=== PATIENT | female | born 1965 | race African-American/Black ===

== ENCOUNTER 2016-06-22 09:14 | Emergency (ER) | payer MEDICARE, MEDICAID ==
[~2016-06-22] VITALS: Ht 157.5 cm; Wt 60.0 kg
[~2016-06-22 09:14] MED LIST: HYDROCHLOROT12.5 MG OR; LISINOPRIL20 M1 OR; LORTAB5 PO; MELOXICAM15 MG OR; NORVASC; NORVASC OR; TRAMADOL HCL50 MG PO
[2016-06-22 09:38] LABS: HEMATOCRIT 35.4 % (37.0-47.0); HEMOGLOBIN 12.1 g/dl (12.0-16.0); IMMATURE GRANULOCYTES 0.4 % (0.0-1.0); MEAN CELL VOLUME 109.6 fL CALC (80.0-100.0); MEAN CORPUSCULAR HGB 37.5 pG CALC (26.0-32.0); MEAN CORPUSCULAR HGB CONC 34.2 g/L CALC (32.0-36.0); NEUT# 3.7 thou/uL (2.00-7.15); RED BLOOD COUNT 3.23 mill/uL (4.20-5.60); RED CELL DISTRI WIDTH 13.3 % (11.5-15.5)
[2016-06-22 09:48] LABS: ALBUMIN 4.5 g/dL (3.2-5.0); ALKALINE PHOSPHATASE 84 u/l (38-126); ANION GAP 17 (6-22 (CALC)); BILIRUBIN, TOTAL 0.5 mg/dL (0.0-1.4); BUN 16 mg/dL (7-17); BUN/CREATININE RATIO 18 (12-20 (CALC)); CALCIUM 9.8 mg/dL (8.4-10.2); CARBON DIOXIDE 25 mmol/l (22-30); CHLORIDE 102 mmol/l (95-108); CREATININE 0.9 mg/dL (0.5-1.0); GFR > 60 ML/MIN (>=60 (CALC)); GFR FOR AFR.AMER. > 60 ML/MIN (>=60 (CALC)); GLUCOSE 94 mg/dL (65-105); POTASSIUM 3.7 mmol/l (3.5-5.1); SGOT/AST 40 u/l (14-36); SGPT/ALT 26 u/l (9-52); SODIUM 140 mmol/l (137-146); TOTAL PROTEIN 8.1 g/dL (6.3-8.2)
[2016-06-22 09:59] LABS: MYOGLOBIN 12 ng/mL (0 - 62)
[2016-06-22] MEDS ORDERED: AMLODIPINE5 MG PO (10:21)
[2016-06-22] MEDS ORDERED: TRAMADOL HCL50 MG PO (10:22)
[2016-06-22] MEDS ORDERED: PAROXETINE10 MG PO (10:22)
[2016-06-22] MEDS ORDERED: ONDANSETRON HCL4 MG PO (10:23)
[2016-06-22] MEDS ORDERED: OXYCODONE HCL5 MG PO (10:23)
[2016-06-22] MEDS ORDERED: TERBINAFINE250 MG PO (10:24)
[2016-06-22 11:21] VITALS: BP 123/80
== END 2016-06-22 11:21 | disposition home or self-care (01) ==
LOC: ED 09:14
PROVIDERS: Emergency Medicine
DX: R55 Syncope and collapse (principal); R94.31 Abnormal electrocardiogram [ECG] [EKG]; Y92.89 Other specified places as the place of occurrence of the external cause

== ENCOUNTER 2017-03-27 14:53 | Emergency (ER) | payer MEDICARE, MEDICAID ==
[~2017-03-27] VITALS: Ht 157.5 cm; Wt 58.2 kg
[~2017-03-27 14:53] MED LIST changes: +AMLODIPINE5 MG PO; +ONDANSETRON HCL4 MG PO; +OXYCODONE HCL5 MG PO; +PAROXETINE10 MG PO; +TERBINAFINE250 MG PO
[2017-03-27] MEDS ORDERED: ULTRAM50 M1 PO (15:50)
[2017-03-27] MEDS ORDERED: OXYCODONE10 MG PO (15:51)
[2017-03-27] MEDS ORDERED: TERBINAFINE HC250 MG PO (15:52)
[2017-03-27] MEDS ORDERED: CARVEDILOL3.125 MG PO ×2 (15:52→15:58)
[2017-03-27] MEDS ORDERED: PREDNISONE50 MG PO (16:14)
[2017-03-27] MEDS ORDERED: LORTAB 5/3255 MG PO (16:14)
[2017-03-27 16:21] VITALS: BP 165/99
== END 2017-03-27 16:32 | disposition home or self-care (01) ==
LOC: ED 14:53
DX: M19.071 Primary osteoarthritis, right ankle and foot (principal); I10 Essential (primary) hypertension; F17.210 Nicotine dependence, cigarettes, uncomplicated

== ENCOUNTER 2017-06-13 08:35 | Day surgery (SDC) | payer MEDICARE, MEDICAID ==
[~2017-06-13] VITALS: Ht 157.5 cm; Wt 59.0 kg
[~2017-06-13 08:35] MED LIST changes: +B121000 MCG PO; +CARVEDILOL3.125 MG PO; +D3400 UNIT PO; +ESTRACE0.5 MG PO; +LORTAB 5/3255 MG PO; +MAGNESIUM400 MG PO; +OXYCODONE10 MG PO; +PREDNISONE50 MG PO; +TERBINAFINE HC250 MG PO; +ULTRAM50 M1 PO
[2017-06-13 09:37] LABS: URINE BILIRUBIN - DIPSTICK NEGATIVE (NEGATIVE); URINE BLOOD DIPSTICK TRACE-INTACT (NEGATIVE); URINE COLOR YELLOW; URINE GLUCOSE - DIPSTICK NEGATIVE (NEGATIVE); URINE KETONE NEGATIVE (NEGATIVE); URINE LEUK ESTERASE NEGATIVE (Negative); URINE NITRITE - DIPSTICK POSITIVE (Negative); URINE PH 5.5 (4.5-8.0); URINE PROTEIN - DIPSTICK NEGATIVE (NEG-TRACE); URINE SPECIFIC GRAVITY 1.025; URINE UROBILINOGEN - DIPSTICK 0.2 E.U./dL (0.2)
[2017-06-13 09:40] LABS: URINE CLARITY HAZY
[2017-06-13 09:41] LABS: HEMATOCRIT 36.3 % (37.0-47.0); HEMOGLOBIN 12.1 g/dl (12.0-16.0); IMMATURE GRANULOCYTES 0.4 % (0.0-1.0); MEAN CELL VOLUME 103.1 fL CALC (80.0-100.0); MEAN CORPUSCULAR HGB 34.4 pG CALC (26.0-32.0); MEAN CORPUSCULAR HGB CONC 33.3 g/L CALC (32.0-36.0); NEUT# 6.01 thou/uL (2.00-7.15); RED BLOOD COUNT 3.52 mill/uL (4.20-5.60); RED CELL DISTRI WIDTH 13.6 % (11.5-15.5)
[2017-06-13 09:42] LABS: URINE BACTERIA MODERATE hpf; URINE EPITHELIAL CELLS FEW EPI/hpf (0-FEW)
[2017-06-13 10:09] LABS: ALBUMIN 4.4 g/dL (3.2-5.0); ALKALINE PHOSPHATASE 85 u/l (38-126); ANION GAP 17 (6-22 (CALC)); BILIRUBIN, TOTAL 0.6 mg/dL (0.0-1.4); BUN 20 mg/dL (7-17); BUN/CREATININE RATIO 28 (12-20 (CALC)); CARBON DIOXIDE 26 mmol/l (22-30); CHLORIDE 102 mmol/l (95-108); CREATININE 0.7 mg/dL (0.5-1.0); GFR > 60 ML/MIN (>=60 (CALC)); GFR FOR AFR.AMER. > 60 ML/MIN (>=60 (CALC)); POTASSIUM 3.6 mmol/l (3.5-5.1); SGOT/AST 34 u/l (14-36); SGPT/ALT 35 u/l (9-52); SODIUM 142 mmol/l (137-146); TOTAL PROTEIN 7.3 g/dL (6.3-8.2)
[2017-06-13 10:14] LABS: INTERNATIONAL NORMALIZED RATIO 0.9 RATIO (0.7-1.3); PROTHROMBIN TIME 10.3 SECONDS (9.0-12.5)
[2017-06-13] MEDS ORDERED: PERCOCET 10/31 COMBO PO (12:20)
[2017-06-13] MEDS ORDERED: ECOTRIN M/S500 MG PO (12:20)
[2017-06-13] MEDS ORDERED: KEFLEX500 M1 PO (12:20)
[2017-06-13 12:32] VITALS: BP 129/82
== END 2017-06-13 14:20 | disposition home or self-care (01) ==
LOC: ORM 08:35
PROVIDERS: ATTEND Podiatrist Foot & Ankle Surgery
PROC: 0MQQ4ZZ Repair Right Ankle Bursa and Ligament, Percutaneous Endoscopic Approach (ICD-10-PCS; principal; 2017-06-13)
PROC: 0SBF4ZZ Excision of Right Ankle Joint, Percutaneous Endoscopic Approach (ICD-10-PCS; 2017-06-13)
DX: M25.371 Other instability, right ankle (principal); M65.871 Other synovitis and tenosynovitis, right ankle and foot; M24.171 Other articular cartilage disorders, right ankle; M24.671 Ankylosis, right ankle

== ENCOUNTER → 2018-04-06 | Outpatient (REF) | payer MEDICARE, MEDICAID ==
[~2018-04-06] MED LIST changes: +ECOTRIN M/S500 MG PO; +KEFLEX500 M1 PO; +PERCOCET 10/31 COMBO PO
[2018-04-06 15:23] LABS: HEMATOCRIT 37.9 % (37.0-47.0); IMMATURE GRANULOCYTES 0.3 % (0.0-5.0); MEAN CELL VOLUME 100.8 fL CALC (80.0-100.0); MEAN CORPUSCULAR HGB 34.6 pG CALC (26.0-32.0); MEAN CORPUSCULAR HGB CONC 34.3 g/L CALC (32.0-36.0); NEUT# 4.47 thou/uL (2.00-7.15); RED BLOOD COUNT 3.76 mill/uL (4.20-5.60); RED CELL DISTRI WIDTH 13.5 % (11.5-15.5)
[2018-04-06 15:57] LABS: ALBUMIN 4.9 g/dL (3.2-5.0); ALKALINE PHOSPHATASE 63 u/l (38-126); ANION GAP 19 (6-22 (CALC)); BILIRUBIN, TOTAL 1.1 mg/dL (0.0-1.4); BUN 13 mg/dL (7-17); BUN/CREATININE RATIO 15 (12-20 (CALC)); CARBON DIOXIDE 23 mmol/l (22-30); CHLORIDE 100 mmol/l (95-108); CREATININE 0.9 mg/dL (0.5-1.0); GFR > 60 ML/MIN (>=60 (CALC)); GFR FOR AFR.AMER. > 60 ML/MIN (>=60 (CALC)); POTASSIUM 3.8 mmol/l (3.5-5.1); SGOT/AST 39 u/l (14-36); SODIUM 138 mmol/l (137-146); TOTAL CHOLESTEROL 182 mg/dl (0-199); TOTAL PROTEIN 7.8 g/dL (6.3-8.2); TOTAL TRIGLYCERIDES 96 mg/dl (30-149); VLDL CHOLESTROL 19 mg/dl (2-49 (CALC))
[2018-04-06 16:07] LABS: CALCULATED LDLCHOLESTEROL 47 mg/dL (62-129 (CALC)); CHOLESTEROL HDL RATIO 1.6 (<4.4 (CALC)); HDL CHOLESTEROL 116 mg/dL (>=40)
== END | disposition home or self-care (01) ==
LOC: LAB 15:08
PROVIDERS: ATTEND Internal Medicine
DX: I10 Essential (primary) hypertension (principal); E78.49 Other hyperlipidemia; E03.9 Hypothyroidism, unspecified; E11.65 Type 2 diabetes mellitus with hyperglycemia

== ENCOUNTER 2019-08-18 18:11 | Emergency (ER) | payer MEDICARE, MEDICAID ==
[~2019-08-18] VITALS: Ht 157.5 cm; Wt 59.0 kg
[2019-08-18 18:23] VITALS: BP 126/93
== END 2019-08-18 20:15 | disposition left against medical advice (07) ==
LOC: ED 18:11
PROC: 2W2SX4Z Dressing of Right Foot using Bandage (ICD-10-PCS; principal; 2019-08-18)
DX: T25.291A Burn of second degree of multiple sites of right ankle and foot, initial encounter (principal); T31.0 Burns involving less than 10% of body surface; I10 Essential (primary) hypertension; F17.200 Nicotine dependence, unspecified, uncomplicated; X12.XXXA Contact with other hot fluids, initial encounter; Y93.E1 Activity, personal bathing and showering; Y92.009 Unspecified place in unspecified non-institutional (private) residence as the place of occurrence of the external cause; Z91.19 Patient's noncompliance with other medical treatment and regimen

== ENCOUNTER 2020-01-06 09:05 | Inpatient (IN) | payer MEDICARE, MEDICAID ==
[~2020-01-06] VITALS: Ht 157.5 cm; Wt 60.0 kg
--- NOTE | 2020-01-06 09:05 | NUR ---
PATIENT TO ROOM VIA EMS STRETCHER.
[2020-01-06 09:47] LABS: HEMATOCRIT 37.1 % (37.0-47.0); HEMOGLOBIN 12.1 g/dl (12.0-16.0); IMMATURE GRANULOCYTES 0.3 % (0.0-5.0); MEAN CORPUSCULAR HGB 31.3 pG CALC (26.0-32.0); MEAN CORPUSCULAR HGB CONC 32.6 g/dL CAL (32.0-36.0); NEUT# 11.89 thou/uL (2.00-7.15); RED BLOOD COUNT 3.87 mill/uL (4.20-5.60); RED CELL DISTRI WIDTH 16.5 % (11.5-15.5)
[2020-01-06 09:48] LABS: MEAN CELL VOLUME 95.9 fL CALC (80.0-100.0)
[2020-01-06 10:27] LABS: ALBUMIN 4.3 g/dL (3.2-5.0); POTASSIUM 3.5 mmol/l (3.5-5.1); TOTAL PROTEIN 7.3 g/dL (6.3-8.2)
--- NOTE | 2020-01-06 10:30 | NUR ---
IV MEDS INFUSING WITHOUT DIFFICULTY. STABLE ON MONITOR. BED IN LOW POSITION.
[2020-01-06 10:38] LABS: BILIRUBIN, TOTAL 0.9 mg/dL (0.0-1.4); CREATININE 2.5 mg/dL (0.5-1.0)
[2020-01-06 10:47] LABS: URINE BLOOD DIPSTICK SMALL (NEGATIVE); URINE GLUCOSE - DIPSTICK NEGATIVE (NEGATIVE); URINE KETONE TRACE mg/dL (NEGATIVE); URINE LEUK ESTERASE NEGATIVE (NEGATIVE); URINE PROTEIN - DIPSTICK 30 mg/dL (NEG-TRACE); URINE SPECIFIC GRAVITY >=1.030; URINE UROBILINOGEN - DIPSTICK 0.2 E.U./dL (0.2)
[2020-01-06 10:49] LABS: URINE BILIRUBIN - DIPSTICK LARGE (NEGATIVE); URINE COLOR DK. YELLOW; URINE EPITHELIAL CELLS MANY EPI/hpf (0-FEW); URINE NITRITE - DIPSTICK POSITIVE (Negative)
[2020-01-06 10:50] LABS: URINE BACTERIA MODERATE hpf
[2020-01-06 10:56] LABS: TSH, 3RD GENERATION 1.54 uIU/mL (0.47 - 4.68)
--- NOTE | 2020-01-06 11:30 | NUR ---
PT RESTING ON STRETCHER. RESP EVEN AND UNLABORED. IVF CONTINUING TO INFUSE TO RIGHT EJ SITE WITHOUT DIFFICULYT. JORDAN BAG WITH APPX 200 CC OF DARK COLORED URINE. DIME SIZE BED SORE NOTED TO SACCRUM. PT ABLE TO RECOGNIZE SELF, YEAR AND PLACE.
--- NOTE | 2020-01-06 11:55 | NUR ---
REPORT CALLED TO HEIDI HIDALGO ON [facility].
[2020-01-06 17:12] VITALS: BP 132/93
--- NOTE | 2020-01-06 18:32 | NUR ---
PT WAS FED BY LOLI OVALLE, BUT ATE VERY LITTLE. PT REMAINS LETHARGIC IN THE BED, APPEARS TO BE SLEEPING.
[2020-01-06 18:54] VITALS: BP 103/77
--- NOTE | 2020-01-06 19:36 | NUR ---
PT APPEARS TO BE SLEEING IN LOW FOWLERS POSITION IN BED WITH LIGHTS AND TV OFF. NO S/O DISTRESS NOTED AT THIS TIME.
--- NOTE | 2020-01-06 21:55 | NUR ---
PT APEARS TO BE SLEEPING I ENTERED THE ROOM. ASSESSMENT COMPLETED AT THIS TIME. PT LOC TO SELF, BUT UNABLE TO TELL ME WHERE SHE IS. PT APPEARS VERY GROGGY. SHE DID ASK FOR FOOD/PROVIDED SNACK AT THIS TIME, BUT PT APPEARS TO BE TOO SLEEPY TO EAT AT THIS TIME. WILL CONTINUE TO MONITOR.
[2020-01-06 23:57] VITALS: BP 125/84
--- NOTE | 2020-01-07 01:12 | NUR ---
PT SLEEPING, NO S/O DISTRESS NOTED AT THIS TIME. UNOPENED SNACK IS STILL AT BEDSIDE UNOPENED. CALL LIGHT AT SIDE.
[2020-01-07 04:00] VITALS: BP 109/78
[2020-01-07 05:26] LABS: IMMATURE GRANULOCYTES 0.6 % (0.0-5.0); MEAN CELL VOLUME 95.8 fL CALC (80.0-100.0); MEAN CORPUSCULAR HGB 31.4 pG CALC (26.0-32.0); MEAN CORPUSCULAR HGB CONC 32.8 g/dL CAL (32.0-36.0); NEUT# 5.87 thou/uL (2.00-7.15); RED BLOOD COUNT 3.12 mill/uL (4.20-5.60); RED CELL DISTRI WIDTH 16.9 % (11.5-15.5)
[2020-01-07 05:30] LABS: HEMATOCRIT 29.9 % (37.0-47.0); HEMOGLOBIN 9.8 g/dl (12.0-16.0)
[2020-01-07 05:39] LABS: BILIRUBIN, TOTAL 0.6 mg/dL (0.0-1.4); CREATININE 1.7 mg/dL (0.5-1.0); MAGNESIUM 1.8 mg/dL (1.6-2.3); POTASSIUM 3.3 mmol/l (3.5-5.1)
[2020-01-07 05:42] LABS: TOTAL PROTEIN 5.3 g/dL (6.3-8.2)
--- NOTE | 2020-01-07 05:42 | NUR ---
PT SLEEPING ON LEFT SIDE. PT AWOKE TO MY VOICE. I WENT OVER MEDICATION WITH PT, ENCOURAGED HER TO CHANGE SIDES DUE TO BEING ON THAT SIDE MOST OF THE NIGHT, SHE STATED "YOU WILL HAVE TO HELP ME." I PROCEEDED TO ASSIST PT REPOSITION IN THE BED, PT APPEARS WEAK AND DID NOT GIVE MUCH EFFORT TO REPOSITIONING. JORDAN CATH DRAINING CLEAR YELLOW URINE TO GRAVITY, STAT-LOCK TO RUE. NEURO'S APPEAR INTACT AT THIS TIME, BUT PT LOC TO SELF AND HOSPITAL ONLY, COULD NOT NAME THE HOSPITAL. PT STATES, "I NEED FOOD" I INFORMED HER THAT SHE HAS FOOD ON HER BST AND ATTEMPTED TO ASSIST PT TO EAT, BUT SHE WOULD NOT EAT. PT DOES NOT APPEAR IN DISTRESS, APPEARS GROGGY AND WEAK. CALL LIGHT W/IN REACH AND PT REORIENTED TO ITS USE.
[2020-01-07 09:00] VITALS: BP 101/78
--- NOTE | 2020-01-07 09:00 | NUR ---
ASSESSMENT IS COMPLETED: IV SITE IS FREE FROM REDNESS OR EDMEA. HR IS REG,PULSES ARE STRONG X4,A BD IS SOFT WITH ACTIVE BS. BREATH SOUNDS ARE CLEAR BILATERALLY, JORDAN DRAINING CHRISS COLORED. TELE MONITOR #[id number] CONTINUE TO OSBERVE AND MONITOR.
[2020-01-07] MEDS ORDERED: OXYCODONE10 M1 PO (10:44)
[2020-01-07] MEDS ORDERED: MEGESTROL625 MG/5 M PO (10:47)
[2020-01-07] MEDS ORDERED: ZESTRIL5 M1 PO (10:48)
[2020-01-07] MEDS ORDERED: TERBINAFINE HC250 MG PO (10:49)
[2020-01-07] MEDS ORDERED: DRONABINOL10 MG PO (10:58)
[2020-01-07] MEDS ORDERED: VITAMIN D35000 UNIT PO (11:07)
[2020-01-07 11:15] VITALS: BP 114/81
[2020-01-07] MEDS ORDERED: ALENDRONATE SOD70 MG PO (11:19)
[2020-01-07] MEDS ORDERED: ONDANSETRON ODT8 MG TL (11:20)
--- NOTE | 2020-01-07 12:40 | NUR ---
PT IS RELAXING IN BED WITH NO DISTRESS NOTED. PT NOT WANTING TO EAT VERY MUCH OR DRINK. HAS TO BE ENCOURAGED.
[2020-01-07 15:25] VITALS: BP 130/87
--- NOTE | 2020-01-07 16:40 | NUR ---
PT IS RELAXING IN BED WITH MO DISTRESS NOTED. IV SITE IS FREE FROM REDNESS OR EDEA
[2020-01-07 19:00] VITALS: BP 123/95
--- NOTE | 2020-01-07 20:43 | NUR ---
PT SLEEPING, AWOKE TO MY VOICE, PT IS SLUMPED OVER ON HER LEFT SIDE AND ASKED TO BE PULLED OVER. I ENCOURAGED HER TO HELP MOVE HERSELF WITH MY ASSISTANCE SHOWING HER THE RAIL ON THE BED, VERY WEAK, BUT SHE WAS ABLE TO REPOSITION IN THE BED WITH DIRECT INSTRUCTION. EYES ARE OPEN AND SPEECH IS CLEAR. PT ASKING ME WHAT I COOKED, I REORIENTED HER THAT SHE IS IN THE HOSPITAL AND OFFERED COKE OR JUICE WITH CRACKERS.
--- NOTE | 2020-01-07 21:11 | NUR ---
PT'S BROTHER "JLUIS" CALLED WITH [employer] TO ASK FOR UPDATE ON THE PT. DISCUSSED STATUS AND POC AT THIS TIME WITH HIM. WE PLACED A PHONE IN WITH PT, BUT HE STATED HE WOULD NOT "BOTHER HER." I REVIEWED VISITATION RESTRICTIONS WITH HIM AND OFFERED TO TRANSFER HIS CALL INTO HER/DENIED. HE ASKED FOR ME TO CALL HIM AT THE NUMBER USED AT THIS TIME IF ANYTHING "HAPPENS TO HER." ENCOURAGED HIM TO CALL ANYTIME IF HE HAS ANY QUESTIONS.
--- NOTE | 2020-01-07 23:45 | NUR ---
PT MEDICATED ORDERS PROVIDE AND CLEANED OF INCONTINENT LARGE AMOUNT OF SOFT STOOL AT THIS TIME. PT TOLERATED WELL.
[2020-01-08] VITALS: BP 137/96
[2020-01-08 04:00] VITALS: BP 134/96
--- NOTE | 2020-01-08 04:19 | NUR ---
LAB IN W/PT. PT MEDICATED ORDERS PROVIDE FOR MORNING MEDICATIONS AND IVF REPLENISHED AT THIS TIME. I ASKED PT HOW SHE WAS THIS MORNING SHE REPORTED, "AWE IT WILL WORK OUT." DENIES PAIN/N/V OR ANY OTHER DISTRESSES. LIGHTS TURNED LOW AND TV IS ON.
[2020-01-08 05:31] LABS: HEMATOCRIT 28.3 % (37.0-47.0); MEAN CELL VOLUME 98.3 fL CALC (80.0-100.0); MEAN CORPUSCULAR HGB 31.3 pG CALC (26.0-32.0); MEAN CORPUSCULAR HGB CONC 31.8 g/dL CAL (32.0-36.0); RED BLOOD COUNT 2.88 mill/uL (4.20-5.60)
[2020-01-08 05:48] LABS: CREATININE 1.2 mg/dL (0.5-1.0); MAGNESIUM 1.5 mg/dL (1.6-2.3)
[2020-01-08 05:50] LABS: POTASSIUM 3.2 mmol/l (3.5-5.1)
[2020-01-08 07:28] VITALS: BP 132/99
--- NOTE | 2020-01-08 08:19 | NUR ---
PT AWAKE, ALERT, ORIENTED TO SELF ONLY. LUNGS CLEAR, RA. ABDOMEN SOFT, NONTENDER, BM TODAY. IVF CONTINUES TO RIJ SITE. PT IMPROVED, HOWEVER REMAINS IN NEED OF FEEDING ASSISTANCE AND SHE IS CONFUSED.
[2020-01-08 10:30] VITALS: BP 128/90
--- NOTE | 2020-01-08 11:09 | NUR ---
PT ABLE TO USE BEDPAN THIS MORNING, DID STATE HER NEED APPROPRIATELY.
--- NOTE | 2020-01-08 12:53 | NUR ---
PT FED LUNCH, TOLERATED WELL. PT CONTINUES CONFUSED, ALTHOUGH AT TIMES SHE APPEARS ORIENTED.
[2020-01-08 14:55] VITALS: BP 124/89
--- NOTE | 2020-01-08 18:39 | NUR ---
PT HAS BEEN ABLE TO SPEAK WITH HER BROTHER BY PHONE TODAY. SHE IS SLOWLY SHOWING IMPROVEMENT IN MENTATION.
[2020-01-08 19:00] VITALS: BP 136/97
--- NOTE | 2020-01-08 21:00 | NUR ---
Pt resting in bed with HOB at 45*, still confused A&O to self. Nurse offered water and a snack, pt accepted and nursed helped her take a drink and gave her half of nutri grain bar.
[2020-01-09] VITALS (7 sets, daily range): BP systolic 129–148; BP diastolic 80–103
--- NOTE | 2020-01-09 | NUR ---
Pt resting in bed with eyes open, however when asked if she knows where she is. She does not know and when informed she is in the hospital, she denies it. She does state she feels better than she was feeling. Pt is pleasently confused.
--- NOTE | 2020-01-09 04:46 | NUR ---
CERTIFIED MEDICAL ASSISTANT noified nurse regarding elevated BP 147/103, waited 30 mins and rechecked currently 141/101. Contacted Dr. Mckeon, left a VM and also text 15 mins later. Awaiting response, however will continue to monitor as pt is asymptomatic and is resting comfortably.
[2020-01-09 05:26] LABS: HEMATOCRIT 29.3 % (37.0-47.0); HEMOGLOBIN 9.3 g/dl (12.0-16.0); MEAN CORPUSCULAR HGB 31.1 pG CALC (26.0-32.0); MEAN CORPUSCULAR HGB CONC 31.7 g/dL CAL (32.0-36.0); RED BLOOD COUNT 2.99 mill/uL (4.20-5.60); RED CELL DISTRI WIDTH 17.1 % (11.5-15.5)
[2020-01-09 05:36] LABS: ANION GAP 10 (6-22 (CALC)); BUN 37 mg/dL (7-17); BUN/CREATININE RATIO 40 (12-20 (CALC)); CARBON DIOXIDE 22 mmol/l (22-30); CHLORIDE 120 mmol/l (95-108); CREATININE 0.9 mg/dL (0.5-1.0); GFR > 60 ML/MIN (>=60 (CALC)); GFR FOR AFR.AMER. > 60 ML/MIN (>=60 (CALC)); MAGNESIUM 1.8 mg/dL (1.6-2.3); POTASSIUM 3.7 mmol/l (3.5-5.1); SODIUM 148 mmol/l (137-146)
--- NOTE | 2020-01-09 06:31 | NUR ---
MD put in new orders for the AM/daily regarding pt elevated BP. Will relay information to next nurse.
--- NOTE | 2020-01-09 07:50 | NUR ---
REPORT RECEIVED FROM HEIDI TIJERINA. PT RESTING IN BED SUPINE WITH EYES CLOSED; AWAKENS TO VERBAL STIMULI. PT LOOKS AROUND THE ROOM WITH EYES HALF OPEN AND DOES NOT MAKE EYE CONTACT. ABLE TO STATE NAME AND , BUT OTHERWISE DISORIENTED. FOLLOWS COMMANDS TO OPEN MOUTH AND ONLY OPENS EYES HALF WAY EVEN AFTER ENCOURAGEMENT TO OPEN THEM WIDE; ASSISTED WITH EYE OPENING; PUPILS ARE EVEN 2MM WITH SLUGGISH REACTION TO LIGHT. LUNG SOUNDS ARE DIMINISHED; NO EDEMA; KARYN HOSE INTACT TO BLE. ASSISTED WITH EATING BREAKFAST. SAFETY MEASURES IN PLACE INCLUDING ROOM CLOSE TO NURSES DESK AND DOOR OPEN FOR BETTER VIEW OF PT. NEEDS ARE ANTICIPATED BY STAFF.
--- NOTE | 2020-01-09 08:32 | NUR ---
TYLENOL GIVEN WITH AM MED FOR LOWER BACK PAIN; PT TOOK MEDICATIONS WHOLE WITH WATER. HYGIENE PROVIDED BY STAFF INCLUDING JORDAN CARE.
--- NOTE | 2020-01-09 08:50 | NUR ---
ASSISTED ONTO BEDPAN AFTER PT REPORTS HAVING TO HAVE A BOWEL MOVEMENT; NO BOWEL MOVEMENT AFTER 20 MINUTES ON BEDPAN.
--- NOTE | 2020-01-09 09:11 | NUR ---
DR. MAGALLON AND RASHARD FIGUEROA AT BEDSIDE FOR EVAL.
--- NOTE | 2020-01-09 11:06 | NUR ---
PHYSICAL THERAPY AT BEDSIDE FOR EVAL. NOTED NYSTAGMUS; PT DIZZY AND NAUSEOUS WITH REPOSITIONING. MRI DELAYED CURRENTLY DUE TO UNKNOWN RECENT MEDICAL/SURGICAL HISTORY.
--- NOTE | 2020-01-09 14:10 | NUR ---
NEW 20G IV SITE PLACED TO LAC FOR CTA OF BRAIN; VERBAL CONSENT OBTAINED FROM NEXT OF KIN, BROTHER MARITZA. PT REMAINS DISORIENTED; PLEASANTLY CONFUSED.
--- NOTE | 2020-01-09 14:40 | NUR ---
TRANSPORTED TO CT VIA STRETCHER WITH [facility] STAFF IN STABLE CONDITION FOR CTA OF BRAIN. CTA COMPLETED AND PT TRASNFERRED BACK INTO BED WITH 3 PERSON ASSIST. PT TOLERATED TEST WELL.
--- NOTE | 2020-01-09 17:52 | NUR ---
PT CONTINUES TO REST IN BED; AWAKE AND LOOKING AROUND THE ROOM; MORE ALERT, BUT REMAINS CONFUSED. 2 IV SITES APPEAR HEALTHY. JORDAN CONTINUES TO DRAIN CLEAR YELLOW URINE IN ADEQUATE AMOUNTS. SAFETY MEASURES IN PLACE.
--- NOTE | 2020-01-09 20:00 | NUR ---
Pt still very confused but pleasent. She is still denying that she is at the hospital. Pt has a gaze as if she is not looking at you or can not see efficiently, however nurse help fingers up and she answered correctly. Pt was complaining of R foot pain, stating she had broke it not long ago. Administered tylenol and is resting in semi-fowlers position.
[2020-01-10] VITALS: BP 140/97
--- NOTE | 2020-01-10 | NUR ---
Pt resting comfortably in semi-arboleda position. Repositioned to the middle of the bed as pt has tendecncy to lean to the left.
--- NOTE | 2020-01-10 03:48 | NUR ---
Pt was found sitting on side of bed after nurse and CHARGE COORDINATOR heard something drop in her room. Pt was partially covered in feces and bed in disarray. Nurse and CHARGE COORDINATOR cleaned pt and bed, change linen and her gown, and placed her proper position in bed. Pt still very confused and weak. Pt watching tv and laying quietly.
[2020-01-10 04:00] VITALS: BP 147/101
[2020-01-10 06:08] LABS: HEMATOCRIT 34.7 % (37.0-47.0); HEMOGLOBIN 10.8 g/dl (12.0-16.0); IMMATURE GRANULOCYTES 1.5 % (0.0-5.0); MEAN CELL VOLUME 99.1 fL CALC (80.0-100.0); MEAN CORPUSCULAR HGB 30.9 pG CALC (26.0-32.0); MEAN CORPUSCULAR HGB CONC 31.1 g/dL CAL (32.0-36.0); NEUT# 5.64 thou/uL (2.00-7.15); RED BLOOD COUNT 3.5 mill/uL (4.20-5.60); RED CELL DISTRI WIDTH 17.2 % (11.5-15.5)
[2020-01-10 06:24] LABS: ANION GAP 10 (6-22 (CALC)); BILIRUBIN, TOTAL 0.6 mg/dL (0.0-1.4); BUN 24 mg/dL (7-17); BUN/CREATININE RATIO 31 (12-20 (CALC)); CARBON DIOXIDE 21 mmol/l (22-30); CHLORIDE 118 mmol/l (95-108); CREATININE 0.8 mg/dL (0.5-1.0); GFR > 60 ML/MIN (>=60 (CALC)); GFR FOR AFR.AMER. > 60 ML/MIN (>=60 (CALC)); POTASSIUM 3.6 mmol/l (3.5-5.1); SGOT/AST 82 u/l (14-36); SODIUM 146 mmol/l (137-146); TOTAL PROTEIN 5.5 g/dL (6.3-8.2)
[2020-01-10 06:28] LABS: ALKALINE PHOSPHATASE 104 u/l (38-126)
[2020-01-10 07:24] VITALS: BP 150/106
--- NOTE | 2020-01-10 07:24 | NUR ---
PT LAYING IN BED. AROUSABLE TO SPEECH. UNABLE TO STATE NAME AT THIS TIME. JORDAN CATHETER IN PLACE DRAINING VIA GRAVITY WITH CLEAR YELLOW URINE NOTED. PT UNABLE TO MAINTAIN EYE CONTACT AT THIS TIME. INCONTINENT OF BOWEL, WITH BOWEL MOVEMENT THIS MORNING. PERICARE PROVIDED ALONG WITH JORDAN CATHETER CARE. ASSESSMENT COMPLETED. DISCUSSED POC, REINFORCEMENT NEEDED. PT PLACED ON NEW BED TO PLACE BED ALARM. CALL LIGHT WITHIN REACH. CONTINUE TO MONITOR.
--- NOTE | 2020-01-10 08:56 | NUR ---
DR MAGALLON AND Bekah MCKNIGHT APRN AT BEDSIDE DISCUSSING POC
[2020-01-10] MEDS ORDERED: CIPROFLOXACN500 MG PO (10:41)
[2020-01-10] MEDS ORDERED: OXYCODONE10 M1 PO (10:41)
[2020-01-10 11:08] VITALS: BP 138/98
--- NOTE | 2020-01-10 11:47 | NUR ---
PT SITTING IN BED. MORE ALERT AND VERBAL. PT A&O TO SELF, REORIENTED TO PLACE AND TIME REINFORCEMENT NEEDED. BED ALARM IN PLACE. CALL LIGHT WITHIN REACH. CONTINUE TO MONITOR.
[2020-01-10 15:05] VITALS: BP 103/75; BP 150/78
--- NOTE | 2020-01-10 17:54 | NUR ---
REPORT GIVEN TO R NURSE. PRESCRIPTIONS SENT WITH PT. IVS INTACT UPON REMOVAL. Discharge instructions given. Patient verbalizes understanding of same. Discharged in stable condition via Wheelchair to [facility] rehab with staff. All belongings sent with pt.
== END 2020-01-10 17:37 | DRG 872 ==
LOC: ED 09:05 → ED-I 10:55 → ED 11:10 → MS2 11:11
PROVIDERS: Family Medicine; Nurse Practitioner; ADMIT Internal Medicine; ATTEND Internal Medicine
DX: A41.9 Sepsis, unspecified organism (principal); N39.0 Urinary tract infection, site not specified; N17.9 Acute kidney failure, unspecified; E87.2 Acidosis; R41.0 Disorientation, unspecified; B96.5 Pseudomonas (aeruginosa) (mallei) (pseudomallei) as the cause of diseases classified elsewhere; I25.10 Atherosclerotic heart disease of native coronary artery without angina pectoris; I10 Essential (primary) hypertension; G89.29 Other chronic pain; Z20.828 Contact with and (suspected) exposure to other viral communicable diseases; F17.210 Nicotine dependence, cigarettes, uncomplicated; Z79.891 Long term (current) use of opiate analgesic; Z79.899 Other long term (current) drug therapy; Z85.118 Personal history of other malignant neoplasm of bronchus and lung
CPT/HCPCS: J0692; J3475; Q9967

== ENCOUNTER → 2020-10-10 | Outpatient (REF) | payer MEDICARE, MEDICAID ==
[~2020-10-10] MED LIST changes: +ALENDRONATE SOD70 MG PO; +ALLOPURINOL100 MG PO; +ARICEPT10 MG PO; +CIPROFLOXACN500 MG PO; +DRONABINOL10 MG PO; +DULCOLAX10 MG RE; +LASIX 20 MG TAB20 MG PO; +MEGESTROL625 MG/5 M PO; +MILK OF MAG30 ML/UDC PO; +NAMENDA10 MG PO; +NORVASC5 M1 PO; +ONDANSETRON ODT8 MG TL; +OXYCODONE10 M1 PO; +POLYETHYLE17 GM/SCOO PO; +RISPERDAL0.5 MG PO; +SENNA-TABS8.6 MG PO; +TOPROL XL25 MG PO; +VITAMIN D35000 UNIT PO; +VITAMIN D350000 UNIT PO; +ZESTRIL5 M1 PO; +ZOLOFT50 MG PO
[2020-10-11 00:02] LABS: URINE BILIRUBIN - DIPSTICK NEGATIVE (NEGATIVE); URINE BLOOD DIPSTICK NEGATIVE (NEGATIVE); URINE COLOR YELLOW; URINE GLUCOSE - DIPSTICK NEGATIVE (NEGATIVE); URINE KETONE NEGATIVE (NEGATIVE); URINE LEUK ESTERASE NEGATIVE (NEGATIVE); URINE PH 5.5 (4.5-8.0); URINE PROTEIN - DIPSTICK NEGATIVE (NEG-TRACE); URINE SPECIFIC GRAVITY 1.025; URINE UROBILINOGEN - DIPSTICK 0.2 E.U./dL (0.2)
[2020-10-11 00:03] LABS: URINE NITRITE - DIPSTICK NEGATIVE (Negative)
== END | disposition home or self-care (01) ==
LOC: LABSPEC 23:34
PROVIDERS: ATTEND Internal Medicine
DX: R50.9 Fever, unspecified (principal)

== ENCOUNTER 2020-10-15 23:51 | Emergency (ER) | payer MEDICARE, MEDICAID ==
[~2020-10-15] VITALS: Ht 157.5 cm; Wt 72.0 kg
[~2020-10-15 23:51] MED LIST changes: -ALLOPURINOL100 MG PO; -ARICEPT10 MG PO; -DULCOLAX10 MG RE; -LASIX 20 MG TAB20 MG PO; -MILK OF MAG30 ML/UDC PO; -NAMENDA10 MG PO; -NORVASC5 M1 PO; -POLYETHYLE17 GM/SCOO PO; -RISPERDAL0.5 MG PO; -SENNA-TABS8.6 MG PO; -TOPROL XL25 MG PO; -VITAMIN D350000 UNIT PO; -ZOLOFT50 MG PO
[2020-10-16 00:45] LABS: HEMATOCRIT 33.1 % (37.0-47.0); IMMATURE GRANULOCYTES 2.3 % (0.0-5.0); MEAN CELL VOLUME 95.7 fL CALC (80.0-100.0); MEAN CORPUSCULAR HGB 28.9 pG CALC (26.0-32.0); MEAN CORPUSCULAR HGB CONC 30.2 g/dL CAL (32.0-36.0); NEUT# 15.49 thou/uL (2.00-7.15); RED BLOOD COUNT 3.46 mill/uL (4.20-5.60); RED CELL DISTRI WIDTH 15.5 % (11.5-15.5)
[2020-10-16 00:59] LABS: BILIRUBIN, TOTAL 0.7 mg/dL (0.0-1.4)
[2020-10-16 01:00] LABS: ACT PARTIAL THROMBO TIME 25.4 SECONDS (20.0-32.5); INTERNATIONAL NORMALIZED RATIO 1.1 RATIO (0.7-1.3); PROTHROMBIN TIME 11.1 SECONDS (9.0-12.5)
[2020-10-16 01:10] LABS: CREATININE 2.6 mg/dL (0.5-1.0); POTASSIUM 4.5 mmol/l (3.5-5.1); TOTAL PROTEIN 7.6 g/dL (6.3-8.2)
[2020-10-16 01:59] LABS: URINE BLOOD DIPSTICK NEGATIVE (NEGATIVE); URINE COLOR YELLOW; URINE GLUCOSE - DIPSTICK NEGATIVE (NEGATIVE); URINE KETONE TRACE mg/dL (NEGATIVE); URINE LEUK ESTERASE NEGATIVE (NEGATIVE); URINE PROTEIN - DIPSTICK 30 mg/dL (NEG-TRACE); URINE SPECIFIC GRAVITY >=1.030
[2020-10-16 02:02] LABS: URINE BILIRUBIN - DIPSTICK NEGATIVE (NEGATIVE); URINE NITRITE - DIPSTICK NEGATIVE (Negative)
[2020-10-16 02:03] LABS: URINE BACTERIA FEW hpf; URINE RBC 0-2 RBC/hpf (0-5); URINE SQUAMOUS EPITHELIAL CELL FEW EPI/hpf (0-FEW)
[2020-10-16 04:37] VITALS: BP 123/78
[2020-10-16] MEDS ORDERED: MILK OF MAG30 ML/UDC PO (05:17)
[2020-10-16] MEDS ORDERED: POLYETHYLE17 GM/SCOO PO (05:19)
[2020-10-16] MEDS ORDERED: DULCOLAX10 MG RE (05:22)
[2020-10-16] MEDS ORDERED: NAMENDA10 MG PO (05:23)
[2020-10-16] MEDS ORDERED: RISPERDAL0.5 MG PO (05:24)
[2020-10-16] MEDS ORDERED: ALLOPURINOL100 MG PO (05:27)
[2020-10-16] MEDS ORDERED: NORVASC5 M1 PO (05:28)
[2020-10-16] MEDS ORDERED: ARICEPT10 MG PO (05:29)
[2020-10-16] MEDS ORDERED: LASIX 20 MG TAB20 MG PO (05:30)
[2020-10-16] MEDS ORDERED: TOPROL XL25 MG PO (05:32)
[2020-10-16] MEDS ORDERED: SENNA-TABS8.6 MG PO (05:36)
[2020-10-16] MEDS ORDERED: VITAMIN D350000 UNIT PO (05:42)
[2020-10-16] MEDS ORDERED: ZOLOFT50 MG PO (05:43)
--- NOTE | 2020-10-18 07:36 | NUR ---
PRELIM BLOOD CX SHOWS GRAM POS COCCI IN 1 AEROBIC VIAL. REPORTED TO CHRISS AT [facility] AND FAXED TO [phone]. WILL F/U WITH FINAL
== END 2020-10-16 04:37 | disposition short-term general hospital (02) ==
LOC: ED 23:51
PROVIDERS: Family Medicine
PROC: 0T9B70Z Drainage of Bladder with Drainage Device, Via Natural or Artificial Opening (ICD-10-PCS; principal; 2020-10-16)
PROC: 5A09357 Assistance with Respiratory Ventilation, Less than 24 Consecutive Hours, Continuous Positive Airway Pressure (ICD-10-PCS; 2020-10-16)
DX: A41.89 Other specified sepsis (principal); U07.1 COVID-19; J12.82 Pneumonia due to coronavirus disease 2019; N28.9 Disorder of kidney and ureter, unspecified; E87.2 Acidosis; I10 Essential (primary) hypertension; Z85.118 Personal history of other malignant neoplasm of bronchus and lung
CPT/HCPCS: J1650

== ENCOUNTER 2021-04-25 11:56 | Emergency (ER) | payer MEDICARE, MEDICAID, OTHER ==
[~2021-04-25] VITALS: Ht 157.5 cm; Wt 100.0 kg
[2021-04-25 11:56] VITALS: BP 119/81
[~2021-04-25 11:56] MED LIST changes: +ALLOPURINOL100 MG PO; +ARICEPT10 MG PO; +DULCOLAX10 MG RE; +LASIX 20 MG TAB20 MG PO; +MILK OF MAG30 ML/UDC PO; +NAMENDA10 MG PO; +NORVASC5 M1 PO; +POLYETHYLE17 GM/SCOO PO; +RISPERDAL0.5 MG PO; +SENNA-TABS8.6 MG PO; +TOPROL XL25 MG PO; +VITAMIN D350000 UNIT PO; +ZOLOFT50 MG PO
[2021-04-25 13:17] LABS: HEMATOCRIT 38.1 % (37.0-47.0); HEMOGLOBIN 11.6 g/dl (12.0-16.0); IMMATURE GRANULOCYTES 0.3 % (0.0-5.0); MEAN CELL VOLUME 97.2 fL CALC (80.0-100.0); MEAN CORPUSCULAR HGB 29.6 pG CALC (26.0-32.0); MEAN CORPUSCULAR HGB CONC 30.4 g/dL CAL (32.0-36.0); NEUT# 10.99 thou/uL (2.00-7.15); RED BLOOD COUNT 3.92 mill/uL (4.20-5.60); RED CELL DISTRI WIDTH 14.5 % (11.5-15.5)
[2021-04-25 13:33] LABS: ALBUMIN 4.5 g/dL (3.2-5.0); ALKALINE PHOSPHATASE 98 u/l (38-126); AMYLASE 109 u/l (30-110); BILIRUBIN, TOTAL 0.8 mg/dL (0.0-1.4); CHLORIDE 100 mmol/l (95-108); LIPASE 39 u/l (23-300); POTASSIUM 4.8 mmol/l (3.5-5.1); SODIUM 140 mmol/l (137-146); TOTAL PROTEIN 8.8 g/dL (6.3-8.2)
[2021-04-25 13:36] LABS: ACT PARTIAL THROMBO TIME 33.4 SECONDS (20.0-32.5); PROTHROMBIN TIME 10.3 SECONDS (9.0-12.5)
[2021-04-25 13:41] LABS: ANION GAP 15 (6-22 (CALC)); BUN 30 mg/dL (7-17); BUN/CREATININE RATIO 30 (12-20 (CALC)); CARBON DIOXIDE 30 mmol/l (22-30); GFR 57 ML/MIN (>=60 (CALC)); GFR FOR AFR.AMER. > 60 ML/MIN (>=60 (CALC)); SGOT/AST 32 u/l (14-36)
[2021-04-25 13:47] LABS: URINE BILIRUBIN - DIPSTICK NEGATIVE (NEGATIVE); URINE BLOOD DIPSTICK NEGATIVE (NEGATIVE); URINE COLOR YELLOW; URINE GLUCOSE - DIPSTICK NEGATIVE (NEGATIVE); URINE KETONE NEGATIVE (NEGATIVE); URINE LEUK ESTERASE NEGATIVE (NEGATIVE); URINE PROTEIN - DIPSTICK NEGATIVE (NEG-TRACE); URINE UROBILINOGEN - DIPSTICK 0.2 E.U./dL (0.2)
[2021-04-25 13:52] LABS: URINE NITRITE - DIPSTICK NEGATIVE (Negative)
== END 2021-04-25 18:25 | disposition short-term general hospital (02) ==
LOC: ED 11:56
DX: J85.1 Abscess of lung with pneumonia (principal); I10 Essential (primary) hypertension; Z85.118 Personal history of other malignant neoplasm of bronchus and lung; Z20.822 Contact with and (suspected) exposure to COVID-19
CPT/HCPCS: Q9967